=== PATIENT | male | born 2000 | race Caucasian/White ===

== ENCOUNTER 2020-12-28 09:36 | Emergency (ER) | payer SELFPAY ==
--- NOTE | 2020-12-28 10:30 | EDM.PDOC ---
ED HPI GENERAL MEDICAL PROBLEM - General Chief Complaint: General Stated Complaint: CHILLS,RUNNY NOSE, ACHY,FEVER Time Seen by Provider: 12/28/20 09:57 Source of Information: Reports: Patient History Limitations: Reports: No Limitations - History of Present Illness INITIAL COMMENTS - FREE TEXT/NARRATIVE: Patient presents with coughing, sneezing, achy, mild fever, chills, sore throat that started around midnight last night. Runny nose started yesterday. He couldn't sleep well last night with it. At work yesterday everyone had a mandatory Covid test; he was negative. He works at a [employer] as a T[employer]ER. He doesn't feel like he will be able to work the [employer] tonight. - Related Data Allergies Allergy/AdvReac Type Severity Reaction Status Date / Time No Known Allergies Allergy Verified 12/28/20 09:52 Home Meds: Home Meds Acetaminophen [Tylenol] 325 mg PO ASDIRECTED PRN 12/28/20 [History] Past Medical History - Past Health History Medical/Surgical History: Denies Medical/Surgical History - Past Surgical History GI Surgical History: Reports: Appendectomy Social & Family History - Tobacco Use Tobacco Use Status *Q: Former Tobacco User Used Tobacco, but Quit: Yes Month/Year Tobacco Last Used: 12/2016 - Caffeine Use Caffeine Use: Reports: Coffee - Recreational Drug Use Recreational Drug Use: No ED ROS GENERAL - Review of Systems Review Of Systems: See Below Constitutional: Reports: Fever, Chills, Malaise, Fatigue. Denies: Weakness HEENT: Reports: Throat Pain. Denies: Ear Pain, Vision Change Respiratory: Reports: Cough. Denies: Shortness of Breath Cardiovascular: Denies: Chest Pain, Lightheadedness, Syncope Endocrine: Reports: Fatigue GI/Abdominal: Denies: Abdominal Pain, Diarrhea, Vomiting : Reports: No Symptoms Musculoskeletal: Reports: No Symptoms (except general achiness) Skin: Denies: Cyanosis, Jaundice, Mottled, Pallor, Diaphoresis Neurological: Denies: Confusion, Dizziness, Seizure, Syncope, Trouble Speaking, Difficulty Walking Psychiatric: Denies: Agitation, Anxiety, Confusion ED EXAM, GENERAL - Physical Exam Exam: See Below Exam Limited By: No Limitations General Appearance: Alert, WD/WN, No Apparent Distress Eye Exam: Bilateral Eye: EOMI, Normal Inspection, PERRL Ears: Normal External Exam, Normal Canal, Hearing Grossly Normal, Normal TMs Nose: No Blood, Nasal Swelling (mild mucosal swelling), Nasal Drainage Throat/Mouth: Normal Inspection, Normal Lips, Normal Teeth, Normal Oropharynx, Normal Voice, No Airway Compromise Head: Atraumatic, Normocephalic Neck: Normal Inspection, Supple, Non-Tender, Full Range of Motion Respiratory/Chest: No Respiratory Distress, Lungs Clear, Normal Breath Sounds, No Accessory Muscle Use Cardiovascular: Regular Rate, Rhythm, No Murmur GI/Abdominal: Soft, Non-Tender Back Exam: Normal Inspection, Full Range of Motion Extremities: Normal Inspection, Normal Range of Motion Neurological: Alert, Oriented, Normal Cognition, No Motor/Sensory Deficits Psychiatric: Normal Affect, Normal Mood Skin Exam: Warm, Dry, Intact, Normal Color, No Rash Course - Vital Signs Last Recorded V/S: Last Vital Signs Temp 99.2 F 12/28/20 09:55 Pulse 87 12/28/20 09:55 Resp 17 12/28/20 09:55 BP 147/90 H 12/28/20 09:55 Pulse Ox 96 12/28/20 09:55 - Re-Assessments/Exams Free Text/Narrative Re-Assessment/Exam: 12/28/20 10:28 We discussed findings and recommendations. I feel it is appropriate for him not to be in close contact with [facility] residents while symptomatic like this even though he tested negative for Covid. He is discharged to home in stable condition. Departure - Departure Time of Disposition: 10:25 Disposition: Home, Self-Care 01 Condition: Good Clinical Impression: Cough, Runny nose Fever Qualifiers: Encounter type: initial encounter URI (upper respiratory infection) Qualifiers: URI type: unspecified viral URI Qualified Code(s): J06.9 - Acute upper respiratory infection, unspecified - Discharge Information Instructions: Cough, Adult, [id number], Upper Respiratory Infection, Adult, [id number] Referrals: Radha Perez MD [Primary Care Provider] - Additional Instructions: Drink 8-10 cups of water daily as we discussed. Stay warm and get extra rest to help your body fight this off as quickly as possible. You can use OTC cold medications if you want. Follow up with your PCP if worsening, or not improving in a few days. Sepsis Event Note (ED) - Evaluation Sepsis Screening Result: No Definite Risk - Focused Exam Vital Signs: Vital Signs Temp Pulse Resp BP Pulse Ox 12/28/20 09:55 99.2 F 87 17 147/90 H 96
== END 2020-12-28 10:33 | disposition home or self-care (01) ==
LOC: KA.ED 09:36
DX: J06.9 Acute upper respiratory infection, unspecified (principal); Z87.891 Personal history of nicotine dependence
CPT/HCPCS: 99283

== ENCOUNTER 2021-08-25 16:47 | Emergency (ER) | payer SELFPAY ==
--- NOTE | 2021-08-25 17:53 | EDM.PDOC ---
ED HPI GENERAL MEDICAL PROBLEM - General Chief Complaint: General Stated Complaint: LACERATION Time Seen by Provider: 08/25/21 17:17 Source of Information: Reports: Patient, Significant Other History Limitations: Reports: No Limitations - History of Present Illness INITIAL COMMENTS - FREE TEXT/NARRATIVE: Patient presents with left thumb laceration from a clean box cutting knife at home. No numbness or paralysis. It bled quite a bit. He hasn't had a tetanus booster since grade school but declines it today. We discussed tetanus and reasons we recommend the immunization. 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) - Related Data Allergies Allergy/AdvReac Type Severity Reaction Status Date / Time No Known Allergies Allergy Verified 08/25/21 16:59 Home Meds: Home Meds Acetaminophen [Tylenol] 650 mg PO Q4H PRN 12/28/20 [History] Past Medical History - Past Health History Medical/Surgical History: Denies Medical/Surgical History Musculoskeletal History: Reports: Fracture - Past Surgical History GI Surgical History: Reports: Appendectomy Social & Family History - Tobacco Use Tobacco Use Status *Q: Former Tobacco User Used Tobacco, but Quit: Yes Month/Year Tobacco Last Used: quit 3 weeks ago - Caffeine Use Caffeine Use: Reports: Coffee, Soda - Recreational Drug Use Recreational Drug Use: No ED ROS GENERAL - Review of Systems Review Of Systems: Comprehensive ROS is negative, except as noted in HPI. ED EXAM, GENERAL - Physical Exam Exam: See Below Exam Limited By: No Limitations General Appearance: WD/WN, No Apparent Distress Eye Exam: Bilateral Eye: EOMI, Normal Inspection, PERRL Ears: Normal External Exam, Hearing Grossly Normal Nose: Normal Inspection, No Blood Throat/Mouth: Normal Inspection, Normal Lips, Normal Voice, No Airway Compromise Head: Atraumatic, Normocephalic Neck: Normal Inspection, Full Range of Motion Respiratory/Chest: No Respiratory Distress, Lungs Clear, Normal Breath Sounds, No Accessory Muscle Use Cardiovascular: Regular Rate, Rhythm, No JVD GI/Abdominal: Normal Bowel Sounds, Soft, Non-Tender, No Organomegaly Back Exam: Normal Inspection, Full Range of Motion. No: CVA Tenderness (L), CVA Tenderness (R) Extremities: Normal Range of Motion, Normal Capillary Refill, Other (Left thumb has full AROM and sensation. There is a crescent-shaped 2 cm laceration/flap just proximal and lateral to the nail. This is cleaned, anesthetized, inspected, and closed. Distal CMS intact.) Neurological: Alert, Oriented, Normal Cognition, No Motor/Sensory Deficits Psychiatric: Normal Affect, Normal Mood Skin Exam: Warm, Dry, Intact (except CC), Normal Color, No Rash ED GENERAL MEDICAL PROCEDURES - Laceration/Wound Repair Left Lateral Distal Digit - 1st (Thumb) Lac/wound length in cm: 2 Appearance: Subcutaneous, Linear (half romero), Clean Distal NVT: Neuro & Vascular Intact, No Tendon Injury Anesthetic Type: Local Local Anesthesia - Lidocaine (Xylocaine): 1% Plain Local Anesthetic Volume: 2cc Skin Prep: Chlorhexidine (Hibiciens) (20 min soak) Exploration/Debridement/Repair: Wound Explored, In a Bloodless Field, Explored to Base Closed with: Sutures Suture Size: 5-0 # of Sutures: 5 Suture Type: Nylon, Interrupted, Simple Drain Placement: No Sterile Dressing Applied: Nurse Tetanus Status Addressed: Yes (discussed risk/benefit; patient declined) Complications: No Course - Vital Signs Last Recorded V/S: Last Vital Signs Temp 97.0 F 08/25/21 16:55 Pulse 77 08/25/21 16:55 Resp 18 08/25/21 16:55 BP 151/78 H 08/25/21 16:55 Pulse Ox 97 08/25/21 16:55 - Orders/Labs/Meds Meds: Medications Discontinued Medications Generic Name Dose Route Start Last Admin Trade Name Laureanoq PRN Reason Stop Dose Admin Lidocaine HCl 5 ml 08/25/21 17:25 08/25/21 17:28 Lidocaine 1% 5 Ml Sdv INJECT 08/25/21 17:26 3 ml ONETIME ONE Administration - Re-Assessments/Exams Free Text/Narrative Re-Assessment/Exam: 08/25/21 17:54 Discussed findings, expectations and recommendations. Sterile technique was used to close laceration as above. Patient tolerated the procedure well. Advised patient to read info on tetanus and follow up with his PCP if he decides to get immunized. Discharged to home in stable condition. Departure - Departure Time of Disposition: 17:48 Disposition: Home, Self-Care 01 Condition: Good Clinical Impression: Laceration of thumb without foreign body without damage to nail Qualifiers: Encounter type: initial encounter Laterality: left Qualified Code(s): S61.012A - Laceration without foreign body of left thumb without damage to nail, initial encounter - Discharge Information Instructions: Laceration Care, Adult, [id number] Referrals: Radha Perez MD [Primary Care Provider] - Additional Instructions: Keep wound clean and dry except for showering or washing under fresh running water as needed. Apply a thin layer of antibiotic ointment or petroleum jelly to keep wound edges moist during healing. Keep sterile bandage on wound whenever at risk for getting dirty or contaminated. You may leave open to air otherwise if desired. Follow up with your PCP in 10 days for suture removal. If any problems or infection recheck sooner in clinic or ER as needed. Sepsis Event Note (ED) - Evaluation Sepsis Screening Result: No Definite Risk - Focused Exam Vital Signs: Vital Signs Temp Pulse Resp BP Pulse Ox 08/25/21 16:55 97.0 F 77 18 151/78 H 97
[2021-08-25] MEDS ORDERED: Bacitracin/Neomycin/Polymyxin B Oint 0.9 GM U/D Packet TOP ONE (17:56)
== END 2021-08-25 18:15 | disposition home or self-care (01) ==
LOC: KA.ED 16:47
DX: S61.012A Laceration without foreign body of left thumb without damage to nail, initial encounter (principal); Z87.891 Personal history of nicotine dependence; W26.0XXA Contact with knife, initial encounter; Y92.009 Unspecified place in unspecified non-institutional (private) residence as the place of occurrence of the external cause
CPT/HCPCS: 12001; 99282-25; 99283